=== PATIENT | male | born 1965 | race Caucasian/White ===

== ENCOUNTER 2019-06-24 09:21 | Emergency (ER) | payer OTHER ==
[~2019-06-24] VITALS: Ht 180.3 cm; Wt 82.0 kg
[2019-06-24] MEDS ORDERED: ACETAMINOPHEN 325MG TABLET PO STA (09:39)
[2019-06-24 11:31] VITALS: BP 164/99
== END 2019-06-24 11:53 | disposition home or self-care (01) ==
LOC: ER 09:21
DX: S83.91XA Sprain of unspecified site of right knee, initial encounter (principal); S09.90XA Unspecified injury of head, initial encounter; I10 Essential (primary) hypertension; V49.9XXA Car occupant (driver) (passenger) injured in unspecified traffic accident, initial encounter; Y93.89 Activity, other specified; Y92.89 Other specified places as the place of occurrence of the external cause; Y99.8 Other external cause status
CPT/HCPCS: 99285